=== PATIENT | female | born 1975 | race Caucasian/White ===

== ENCOUNTER 2024-02-12 06:00 | Day surgery (SDC) | payer BC ==
[2024-02-12] MEDS ORDERED: Midazolam 1 MG/ML 2 ML SDV IV ONE (06:01)
[2024-02-12] MEDS ORDERED: fentaNYL 100 MCG/2 ML SDV IV ONE (06:01)
[2024-02-12] MEDS ORDERED: Midazolam 1 MG/ML 2 ML SDV ONE (06:14)
[2024-02-12] MEDS ORDERED: fentaNYL 100 MCG/2 ML SDV ONE (06:15)
[2024-02-12] MEDS: Dextrose 5%-0.45% NaCl 1,000 ML IV SCH (06:39)
[2024-02-12] MEDS: fentaNYL 100 MCG/2 ML SDV IV ONE ×6 (07:25→07:36)
[2024-02-12] MEDS: Midazolam 1 MG/ML 2 ML SDV IV ONE ×6 (07:26→07:31)
== END 2024-02-12 09:10 | disposition home or self-care (01) ==
LOC: DL.ENDO 06:00
PROVIDERS: ATTEND Internal Medicine Gastroenterology
DX: Z12.11 Encounter for screening for malignant neoplasm of colon (principal); K57.30 Diverticulosis of large intestine without perforation or abscess without bleeding
CPT/HCPCS: 81025; J2250; J3010; J7042

== ENCOUNTER 2024-11-11 06:54 | Emergency (ER) | payer BC ==
[2024-11-11] MEDS: Fluorescein 1 MG Ophth Strip EYELF ONE (07:27)
== END 2024-11-11 07:32 | disposition home or self-care (01) ==
LOC: DL.ED 06:54
DX: S05.02XA Injury of conjunctiva and corneal abrasion without foreign body, left eye, initial encounter (principal); H11.32 Conjunctival hemorrhage, left eye; I10 Essential (primary) hypertension; Z79.82 Long term (current) use of aspirin; Z91.09 Other allergy status, other than to drugs and biological substances; Z79.899 Other long term (current) drug therapy; X58.XXXA Exposure to other specified factors, initial encounter
CPT/HCPCS: 99283

== ENCOUNTER 2025-04-20 22:40 | Emergency (ER) | payer BC ==
[2025-04-20 23:17] LABS: APPEARANCE,URINE CLEAR (CLEAR); GLUCOSE,URINE NEGATIVE (NEGATIVE); OCCULT BLOOD,URINE NEGATIVE (NEGATIVE)
== END 2025-04-21 00:06 | disposition home or self-care (01) ==
LOC: DL.ED 22:40
DX: K62.89 Other specified diseases of anus and rectum (principal); K59.00 Constipation, unspecified; Z91.048 Other nonmedicinal substance allergy status; Z79.82 Long term (current) use of aspirin
CPT/HCPCS: 72170; 74018; 81003; 99283

== ENCOUNTER 2025-04-21 07:24 | Emergency (ER) | payer BC ==
[2025-04-21] MEDS: Orphenadrine 60 MG/2 ML Inj IM ONE (08:30)
[2025-04-21] MEDS: Ketorolac 30 MG/ML SDV IM ONE (08:30)
== END 2025-04-21 11:44 | disposition home or self-care (01) ==
LOC: DL.ED 07:24
DX: M54.16 Radiculopathy, lumbar region (principal); Z91.048 Other nonmedicinal substance allergy status; Z79.82 Long term (current) use of aspirin; Z79.899 Other long term (current) drug therapy
CPT/HCPCS: 72131; 74176; 96372; 99283; 99284; A9270; J1885; J2360

== ENCOUNTER 2025-05-28 11:09 | Emergency (ER) | payer BC ==
[2025-05-28] MEDS: Orphenadrine 60 MG/2 ML Inj IM ONE (11:34)
[2025-05-28] MEDS: Ketorolac 30 MG/ML SDV IM ONE (11:34)
[2025-05-28] MEDS: Take Home: Cyclobenzaprine 10 MG Tab, 4 Tab Pack PO ONE ×2 (12:05→12:24)
== END 2025-05-28 12:26 | disposition home or self-care (01) ==
LOC: DL.ED 11:09
DX: M54.16 Radiculopathy, lumbar region (principal); Z88.8 Allergy status to other drugs, medicaments and biological substances; Z79.82 Long term (current) use of aspirin; Z79.899 Other long term (current) drug therapy
CPT/HCPCS: 96372; 99283; A9270; J1885; J2360; J8540